=== PATIENT | male | born 1945 ===

== ENCOUNTER → 2017-02-02 | Outpatient (CLI) | payer OTHER, BC ==
[2017-02-02 14:33] LABS: CALCIUM 9.1 mg/dl (8.5-10.1)
[2017-02-02 14:41] LABS: ALT/SGPT 35 U/L (12-78); AST/SGOT 19 U/L (15-37); BLOOD UREA NITROGEN 18 mg/dl (7-18); BUN/CREATININE RATIO 14.1 (10-20); CARBON DIOXIDE 28 mmol/L (21-32); CHLORIDE 103 mmol/L (98-107); CHOLESTEROL 170 mg/dl (0-200); GLUCOSE 183 mg/dl (70-99); SODIUM 137 mmol/L (136-145); TRIGLYCERIDES 130 mg/dl (0-150); VERY LOW DENSITY LIPOPROT CALC 26 mg/dl
[2017-02-02 14:45] LABS: CHOLESTEROL/HDL RATIO 3.5; HDL CHOLESTEROL 48 mg/dl
== END ==
LOC: C.LABMFLN 07:03
PROVIDERS: ATTEND Family Medicine
DX: E78.5 Hyperlipidemia, unspecified (principal); I10 Essential (primary) hypertension; E11.9 Type 2 diabetes mellitus without complications; J44.1 Chronic obstructive pulmonary disease with (acute) exacerbation; Z12.11 Encounter for screening for malignant neoplasm of colon; Z11.59 Encounter for screening for other viral diseases

== ENCOUNTER → 2017-12-06 | Outpatient (CLI) | payer OTHER, BC ==
[2017-12-06 13:45] LABS: HEMOGLOBIN A1C 9.2 % (4.5-5.6)
[2017-12-06 14:22] LABS: ALT/SGPT 48 U/L (12-78); BLOOD UREA NITROGEN 13 mg/dl (7-18); CALCIUM 9.1 mg/dl (8.5-10.1); CARBON DIOXIDE 29 mmol/L (21-32); CHOLESTEROL 173 mg/dl (0-200); CREATININE 1.06 mg/dl (0.60-1.40); GLUCOSE 257 mg/dl (70-99); POTASSIUM 4.2 mmol/L (3.5-5.1); SODIUM 132 mmol/L (136-145)
[2017-12-06 14:31] LABS: LDL CHOLESTEROL (DIRECT) 119 mg/dl
[2017-12-06 14:47] LABS: CREATININE RANDOM URINE 38.7 mg/dl
== END | disposition home or self-care (01) ==
LOC: C.LABMFLN 09:26
PROVIDERS: ATTEND Family Medicine
DX: Z00.00 Encounter for general adult medical examination without abnormal findings (principal); E78.5 Hyperlipidemia, unspecified; E11.9 Type 2 diabetes mellitus without complications; I10 Essential (primary) hypertension; R06.09 Other forms of dyspnea